=== PATIENT | male | born 1945 | race Caucasian/White ===

== ENCOUNTER 2021-05-04 18:57 | Observation (INO) | payer OTHER, BC ==
[~2021-05-04] VITALS: Ht 177.8 cm; Wt 109.1 kg
[~2021-05-04 18:57] MED LIST: ALFU10TA PO; ATOR40TA PO; CARB1TAB23 PO; CHOL200074 PO; CLON0.1T PO; CYAN-51 PO; DOCU100C40 PO; FURO-150 PO; HYDR-3965 PO; LOSA100T57 PO; MELA3CAP2 PO; MEMA10TA PO; PANT40TA54 PO; PROP160C35 PO; TEST75GE TOP
[2021-05-04 21:28] LABS: BASOPHILS % (AUTO) 0.3 % (0-1); EOSINOPHILS # (AUTO) 0.1 X10'3 (0-0.9); EOSINOPHILS % (AUTO) 0.7 % (0-6); HEMATOCRIT 34.7 % (42.0-52.0); HEMOGLOBIN 11.3 g/dl (14.0-17.9); LYMPHOCYTES # (AUTO) 0.5 X10'3 (1.1-4.8); LYMPHOCYTES % (AUTO) 6.3 % (21-51); MEAN CORPUSCULAR HEMOGLOBIN 30.6 PG (27.0-31.0); MEAN CORPUSCULAR HGB CONC 32.5 g/dL (33.0-36.5); MEAN CORPUSCULAR VOLUME 94.1 FL (78-98); MONOCYTES # (AUTO) 0.7 X10'3 (0-0.9); NEUTROPHILS # (AUTO) 7.4 X10'3 (1.8-7.7); NEUTROPHILS % (AUTO) 84.7 % (42-75); PLATELET COUNT 335 X10'3 (140-440); RED BLOOD COUNT 3.69 X10'6 (4.70-6.10); RED CELL DISTRIBUTION WIDTH 13.8 % (11.5-14.5); WHITE BLOOD COUNT 8.7 X10'3 (4.5-11.0)
[2021-05-04 21:37] LABS: ALBUMIN 2.7 G/DL (3.4-5.0); ALBUMIN/GLOBULIN RATIO 0.6 (1.1-1.5); ALKALINE PHOSPHATASE 94 IU/L (46-116); ANION GAP 10 (8-16); ASPARTATE AMINO TRANSFERASE 19 U/L (10-37); BILIRUBIN,TOTAL 0.4 MG/DL (0.1-1.0); BLOOD UREA NITROGEN 18 MG/DL (7-18); BUN/CREATININE RATIO 13.2 (5.4-32.0); CALCIUM 8.3 MG/DL (8.5-10.1); CHLORIDE 101 MMOL/L (99-107); CREATININE 1.36 MG/DL (0.60-1.10); GLUCOSE 114 MG/DL (70-104); POTASSIUM 3.9 MMOL/L (3.5-5.1); SODIUM 138 MMOL/L (135-145); eGFR 51 ML/MIN
[2021-05-04 21:44] LABS: MAGNESIUM 1.9 MG/DL (1.5-2.4)
[2021-05-04 21:46] LABS: ALANINE AMINOTRANSFERASE < 6 U/L (12-78)
[2021-05-05] MEDS ORDERED: potassium Cl 20 mEq SR tablet PO PRN ×2 (00:40)
[2021-05-05] MEDS ORDERED: HYDROcodone/acetaminophen 5mg/325mg tablet PO PRN (00:40)
[2021-05-05] MEDS ORDERED: morphine 2 MG/ML inj. syringe IV PRN (00:40)
[2021-05-05] MEDS ORDERED: normal saline 1000ml 1,000 ML IV SCH (00:40)
[2021-05-05] MEDS ORDERED: magnesium 2GM in 50ml NS 50 ML IV PRN (00:40)
[2021-05-05] MEDS ORDERED: magnesium Cl slow-release 64mg tablet PO PRN (00:40)
[2021-05-05] MEDS ORDERED: magnesium 4gm in 100ml NS 100 ML IV PRN (00:40)
[2021-05-05] MEDS ORDERED: acetaminophen 325mg tablet PO PRN ×2 (00:40)
[2021-05-05] MEDS ORDERED: potassium CL 10mEq/100ml bag 100 ML IV PRN (00:40)
[2021-05-05] MEDS ORDERED: ondansetron/PF 4mg/2ml inj IV PRN (00:40)
--- NOTE | 2021-05-05 03:21 | NUR ---
Patient's oxygen saturation dipped into the low 80's while resting. Patient states he wears a CPAP at home for sleep apnea. Patient placed on 2L of O2 for comfort.
[2021-05-05] MEDS ORDERED: carbidoba-levodopa 25-100mg tablet PO SCH (08:00)
[2021-05-05] MEDS ORDERED: furosemide 20MG tablet PO SCH (08:00)
[2021-05-05] MEDS ORDERED: heparin, porcine 5000 units/ml vial SQ SCH (08:00)
[2021-05-05] MEDS ORDERED: atorvastatin 20mg tablet PO SCH (08:00)
[2021-05-05] MEDS ORDERED: tamsulosin 0.4mg capsule PO SCH (08:00)
[2021-05-05] MEDS ORDERED: TESTOSTERONE 1.62% TOP SCH (08:00)
[2021-05-05] MEDS ORDERED: pantoprazole 40mg Tablet.DR PO SCH (08:00)
[2021-05-05] MEDS ORDERED: memantine 5mg tablet PO SCH (08:00)
[2021-05-05] MEDS ORDERED: losartan 50mg tablet PO SCH (08:00)
[2021-05-05] MEDS ORDERED: K and/or MAG REPLACEMENT MC SCH (08:00)
--- NOTE | 2021-05-05 10:45 | NUR ---
daughter melecio called to [facility] patient coming from [facility]
[2021-05-05 10:53] VITALS: BP 142/89
[2021-05-05] MEDS ORDERED: propranolol 40mg tablet PO SCH (21:00)
== END 2021-05-05 10:55 | disposition home or self-care (01) ==
LOC: ER 18:57 → UNDOADMOB 05-05 00:38 → ED HOLD 05-05 00:38 → UNDODISOB 05-05 10:55
PROVIDERS: ADMIT Internal Medicine; ATTEND Internal Medicine
DX: R55 Syncope and collapse (principal); G20 Parkinson's disease; I10 Essential (primary) hypertension; E78.5 Hyperlipidemia, unspecified; K40.20 Bilateral inguinal hernia, without obstruction or gangrene, not specified as recurrent; E78.00 Pure hypercholesterolemia, unspecified; Z90.49 Acquired absence of other specified parts of digestive tract; Z88.0 Allergy status to penicillin; Z79.899 Other long term (current) drug therapy; Z66 Do not resuscitate
CPT/HCPCS: 36415; 70544; 70551; 71045; 80053; 83735; 83880; 84484; 85025; 93005; 93880; 96360; 96361; 96372; 99285; G0378; J1644; J7030

== ENCOUNTER 2021-08-10 08:53 | Day surgery (SDC) | payer OTHER ==
[2021-08-03 10:11] LABS: BASOPHILS % (AUTO) 0.8 % (0-1); EOSINOPHILS # (AUTO) 0.1 X10'3 (0-0.9); EOSINOPHILS % (AUTO) 2.4 % (0-6); LYMPHOCYTES # (AUTO) 0.9 X10'3 (1.1-4.8); LYMPHOCYTES % (AUTO) 16.1 % (21-51); MEAN CORPUSCULAR HEMOGLOBIN 31.5 PG (27.0-31.0); MEAN CORPUSCULAR HGB CONC 34.2 g/dL (33.0-36.5); MEAN CORPUSCULAR VOLUME 92.2 FL (78-98); MEAN PLATELET VOLUME 8.2 FL (7.4-10.4); MONOCYTES # (AUTO) 0.5 X10'3 (0-0.9); MONOCYTES % (AUTO) 9.3 % (2-12); NEUTROPHILS # (AUTO) 3.9 X10'3 (1.8-7.7); NEUTROPHILS % (AUTO) 71.4 % (42-75); PRE OP HEMATOCRIT 36.9 % (42.0-52.0); PRE OP HEMOGLOBIN 12.6 g/dL (14.0-17.9); PRE OP PLATELET COUNT 160 X10'3 (140-440); RED CELL DISTRIBUTION WIDTH 13.9 % (11.5-14.5)
[2021-08-03 10:11] LABS: CLARITY,URINE CLEAR (Clear); COLOR,URINE YELLOW (Yellow); GLUCOSE, URINE NEGATIVE (Neg); KETONES,URINE NEGATIVE (Neg); LEUKOCYTE ESTERASE ,URINE NEGATIVE (Neg); NITRITES, URINE NEGATIVE (Neg); OCCULT BLOOD,URINE NEGATIVE (Neg); PROTEIN,URINE NEGATIVE (Neg); UROBILINOGEN,URINE 0.2 E.U/dL (0.2-1.0)
[2021-08-03 10:25] LABS: ALBUMIN 3.7 G/DL (3.4-5.0); ALBUMIN/GLOBULIN RATIO 1.1 (1.1-1.5); ALKALINE PHOSPHATASE 102 IU/L (46-116); BLOOD UREA NITROGEN 19 MG/DL (7-18); BUN/CREATININE RATIO 17.3 (5.4-32.0); CALCIUM 8.3 MG/DL (8.5-10.1); CHLORIDE 106 MMOL/L (99-107); PRE OP ALT 6 U/L (30-65); PRE OP ANION GAP 7 (8-16); PRE OP AST 20 U/L (10-37); PRE OP BILIRUB, TOTAL 0.5 MG/DL (0.0-1.0); PRE OP GLUCOSE 105 MG/DL (70-104); PRE OP POTASSIUM 4.1 MMOL/L (3.4-5.1); PRE OP SODIUM 142 MMOL/L (135-145); TOTAL CARBON DIOXIDE 29.3 MMOL/L (24-32); TOTAL PROTEIN 7.2 G/DL (6.4-8.2); eGFR 65 ML/MIN
[2021-08-03 10:29] LABS: UA COLLECTION TYPE VOIDED
[2021-08-10] VITALS (13 sets, daily range): BP systolic 141–193; BP diastolic 82–127
[~2021-08-10] VITALS: Ht 177.8 cm; Wt 106.1 kg
[~2021-08-10 08:53] MED LIST changes: +ACET-812 PO; -CLON0.1T PO; +DOCUMENT DATE & TIME OF BETA-BLOCKER PO ONE; -HYDR-3965 PO; -MELA3CAP2 PO; +THIA50TA10 PO; +clindamycin-Cleocin 900mg/D5W 50 ML IV ONE; +famotidine 20mg tablet PO ONE; +ringers solution, lacted 1,000 ML IV SCH
[2021-08-10] MEDS ORDERED: BUPIVAcaine/PF 2.5 mg/ml (0.25%) 30ml vial ONE (14:05)
--- NOTE | 2021-08-10 14:05 | NUR ---
Received from OR via STRETCHER, accompanied by Anesthesiologist AMARILIS and report given by Anesthesiologist. pt arrives very drowsy, severely hypertensive, anesthesia ordered me to give trandate for the hypertension. pt moaning and breathing guppy style. o2 face mask at 10 ltr, with o2 sats at 100
[2021-08-10] MEDS ORDERED: etomidate 2mg/ml inj. ONE ×2 (14:40→15:06)
[2021-08-10] MEDS ORDERED: dexamethasone sod phosphate 10mg/ml inj ONE (14:40)
[2021-08-10] MEDS ORDERED: neostigmine methylsulfate 1 MG/ML 10ml vial ONE (14:40)
[2021-08-10] MEDS ORDERED: sevoflurane 250ml liquid IH ONE (14:40)
[2021-08-10] MEDS ORDERED: glycopyrrolate 0.2mg/ml inj ONE (14:40)
[2021-08-10] MEDS ORDERED: fentaNYL/PF 50MCG/1 ML 2ML syringe ONE (14:45)
[2021-08-10] MEDS ORDERED: midazolam 1 mg/ML 2ml injection ONE (14:46)
[2021-08-10] MEDS ORDERED: ondansetron/PF 4mg/2ml inj ONE (15:05)
[2021-08-10] MEDS ORDERED: rocuronium 10mg/ml inj IV ONE (15:06)
[2021-08-10] MEDS ORDERED: morphine 2 MG/ML inj. syringe IV PRN (15:20)
[2021-08-10] MEDS ORDERED: hydrALAZINE 20mg/ml inj. IV PRN (15:20)
[2021-08-10] MEDS ORDERED: morphine 4 MG/ML inj SYRINge IV PRN (15:20)
[2021-08-10] MEDS ORDERED: ondansetron/PF 4mg/2ml inj IV PRN (15:20)
[2021-08-10] MEDS ORDERED: fentaNYL/PF 50MCG/1 ML 2ML syringe IV PRN (15:20)
[2021-08-10] MEDS ORDERED: ringers solution, lacted 1,000 ML IV SCH (15:20)
[2021-08-10] MEDS ORDERED: ePHEDrine 50MG/ML INJ. ONE (15:53)
[2021-08-10] MEDS ORDERED: sugammadex 200mg/2ml injection IV ONE (16:44)
[2021-08-10] MEDS: fentaNYL/PF 50MCG/1 ML 2ML syringe IV PRN ×2 (16:56→17:02)
[2021-08-10] MEDS: labetalol 20mg/4ml (5mg/ml) syringe IV PRN ×2 (16:58→17:03)
--- NOTE | 2021-08-10 18:07 | NUR ---
PT DISCHARGED TO CARE OF HIS DAUGHTER, PT TAKEN TO LOBBY VIA WHEELCHAIR WITH HIS BELONGINGS, VITAL SIGNS STABLE, PT INSTRUCTED TO USE HIS CPAP MACHINE TONIGHT. INSTRUCTIONS GIVEN NOT TO LIFT ANYTHING OVER 20 POUNDS FOR 4 WEEKS, PT VERBALIZED UNDERSTANDING, INSTRUCTIONS ALSO GIVEN TO DAUGHTER
== END 2021-08-10 18:07 | disposition home or self-care (01) ==
LOC: PAS 08:53
PROVIDERS: ATTEND Surgery
DX: K40.91 Unilateral inguinal hernia, without obstruction or gangrene, recurrent (principal); G47.30 Sleep apnea, unspecified; I10 Essential (primary) hypertension; G20 Parkinson's disease; K21.9 Gastro-esophageal reflux disease without esophagitis; N40.0 Benign prostatic hyperplasia without lower urinary tract symptoms; E66.9 Obesity, unspecified; Z68.33 Body mass index [BMI] 33.0-33.9, adult; Z20.822 Contact with and (suspected) exposure to COVID-19; Z98.890 Other specified postprocedural states; Z88.0 Allergy status to penicillin; Z88.2 Allergy status to sulfonamides; Z88.8 Allergy status to other drugs, medicaments and biological substances; Z85.51 Personal history of malignant neoplasm of bladder; Z79.899 Other long term (current) drug therapy
CPT/HCPCS: 36415; 49651; 80053; 81003; 82948; 85025; C1758; C1781; J1100; J2250; J2270; J2405; J2710; J3010; J3490; J7030; J7120; U0003; U0005; Z7506; Z7508; Z7512; A4215; A4618